=== PATIENT | male | born 1955 | race Caucasian/White ===

== ENCOUNTER → 2018-07-18 09:51 | Outpatient (CLI) | payer OTHER, SELFPAY ==
[2018-07-18 11:26] LABS: Prostate Specific Ag, Diagnost 9.15 ng/mL (0.0-4.0)
== END ==
PROVIDERS: PCP Family Medicine; Visit Provider Urology
DX: R97.20 Elevated prostate specific antigen [PSA] (principal)
CPT/HCPCS: 36415; 84153

== ENCOUNTER → 2018-08-15 10:33 | Outpatient (CLI) | payer OTHER, SELFPAY ==
[2018-08-15 12:28] LABS: Prostate Specific Ag, Diagnost 3.38 ng/mL (0.0-4.0)
== END ==
PROVIDERS: Visit Provider Urology
DX: R97.20 Elevated prostate specific antigen [PSA] (principal)
CPT/HCPCS: 36415; 84153; 84154

== ENCOUNTER → 2018-08-15 10:38 | Outpatient (CLI) | payer OTHER, SELFPAY | PROVIDERS: Visit Provider Urology | DX: R97.20 Elevated prostate specific antigen [PSA] (principal) ==

== ENCOUNTER → 2022-03-08 14:49 | Outpatient (CLI) | payer MEDICARE, OTHER, SELFPAY ==
--- NOTE | 2022-03-08 14:54 | MR_ITS ---
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 There is no evidence of intracranial hemorrhage or mass. The ventricular size is normal. There is no evidence of shift of the midline structures. No area of restricted diffusion is identified. The posterior fossa and brainstem have an unremarkable appearance. Normal major vessel vascular flow voids are seen. There is mild mucosal thickening of the left maxillary sinus. IMPRESSION: No acute intracranial abnormality. Mild left maxillary sinusitis. Reviewed, Interpreted and Dictated by Alok Thornton III, MD Transcribed by Judy Armando Authenticated and [facility]
== END ==
PROVIDERS: PCP Nurse Practitioner Family; Visit Provider Nurse Practitioner Family
DX: R51.9 Headache, unspecified (principal)
CPT/HCPCS: 70551

== ENCOUNTER → 2023-06-14 10:34 | Outpatient (CLI) | payer MEDICARE, OTHER, SELFPAY ==
--- NOTE | 2023-06-14 11:13 | MR_ITS ---
FINAL REPORT CLINICAL HISTORY: RIGHT ANKLE PAIN stiffness up back of leg FINDINGS: Multiplanar MR imaging of the right ankle was performed without contrast.There is motion artifact which limits exam sensitivity. There are mild degenerative changes. The bony structures are intact without evidence of fracture, bone bruise or marrow edema. No osteochondral lesion is identified. There is irregularity of the ATFL consistent with partial tear. There is distal Achilles tendinitis with a complete tear 2.5 cm from its insertion with 1 cm retraction. There is surrounding soft tissue edema or hemorrhage. There is posterior plantar fasciitis. The posterior plantar aponeurosis is intact. There is a tibiotalar joint effusion. Calcaneal spurs are noted. The musculature is intact. There is no evidence of soft tissue mass or cyst. IMPRESSION: Partial tear of the ATFL. Complete tear of the Achilles tendon with 1 cm retraction and surrounding soft tissue edema or hemorrhage. Posterior plantar fasciitis. Reviewed, Interpreted and Dictated by Alok Thornton III, MD Transcribed by Yesenia De Anda Authenticated and . [facility]
== END ==
PROVIDERS: PCP Nurse Practitioner Family; Visit Provider Nurse Practitioner Family
DX: M25.571 Pain in right ankle and joints of right foot (principal)
CPT/HCPCS: 73721

== ENCOUNTER 2024-01-21 08:09 | Day surgery (SDC) | payer MEDICARE, OTHER, SELFPAY ==
[2024-01-21] VITALS (8 sets, daily range): BP systolic 117–149; BP diastolic 69–81; PULSE 73–87; RESP 16–24; TEMP 36.3–36.6; O2SAT 95–96
--- OUTSIDE RECORDS SUMMARY | 2024-01-21 08:12 | XMS_ITS | Clinical Summary ---
Author Name Unknown Address [address] [address] Phone Organization [facility] , [facility] Address [address] [place] [address] Phone Care Team Providers Care Cell Tender Helper Name Role Phone Roshni GUZMAN, Candelario Hodgson Unavailable [phone] DIONISIO TURNER, GUCCI Horton Unavailable [phone] Reason for Visit and Chief Complaint The Chief Complaint is: Right Archilles Rupture Problems Includes: Problems addressed during this encounter and other active Problems All Visits Onset Date Resolved Date Provider Condition S tatus Right Ankle Joint Pain 06/24/2023 Candelario webster DPM Active Last Documented On 3 9:34AM ; [facility] Plan of Treatment Fall Risk Assessment: This patient has been identified as a fall risk. Balance/gait along with postural blood pressure, vision and home fall hazards have been assessed. Medications have been reviewed, and recommendations made with regard to contributing factors for future falls. Plan of care: Consideration of vitamin D supplementation along with balance and strength training with consideration for formal physical therapy has been discussed with the patient. - Last Documented On 09/04/2023 2:42PM ; [facility] I did review the history. I did examine this patient. He seems to be doing quite well. He has responded positively to boot immobilization and to physical therapy. He feels as though that has been tremendously beneficial. We did write a clarification order to increase his activities and start to transition him away from the boot. We discussed a very specific strategy to transition him away from the boot around his home for the next 2 weeks and then onto a good supportive tennis shoe and other activities without the boot outside of his home thereafter. I have reviewed that in detail with this patient. He is understanding of this. We will plan to see him back in 6 months for follow-up. I again reminded him this is going to be an extended period of time as he recovers from this particular injury. He is understanding and agreeable with that plan of care. - Last Documented On 09/04/2023 2:42PM ; [facility], [facility] Pending Tests Order Diagnosis Results Due Ordering P rovider Therapy - Physical Therapy Ankle Overweight 09/04/23 Candelario Barakat DPM Last Documented On 4 2:42PM ; [facility], [facility] Future Appointments Date Time Location Provi ramon Follow Up 03/04/2024 1:00PM [facility] PS C Candelario Barakat DPCorby Last Documented On 4 9:48AM ; [facility], [facility] Instructions to patient Lose weight Last Documented On 4 2:26PM ; [facility], [facility] Assessments Includes: Assessments from this encounter Findings Candelario Barakat DPM made the following assessments - Last Documented On 09/04/2023 2:42PM ; [facility], [facility] - Overweight - Last Documented On 09/04/2023 2:42PM ; [facility], [facility] Nonoperative management Achilles rupture right, doing well. - Last Documented On 09/04/2023 2:42PM ; [facility], [facility] Instructions Includes: Instructions from this encounter Instructions to patient Lose weight Last Documented On 4 2:26PM ; [facility], [facility] Medical Equipment - Implanted Devices Includes: Current Devices No Medical Equipment Recorded Medications Includes: Medications discussed during this encounter and other current Medications Current Medications (continue as prescribed) Fluconazole 100 MG Oral Tablet 06/13/2023 Provider: Angie Jaramillo NP Diagnosis: Last Documented On 3 9:36AM By Yuki Cast ; [facility], [facility] Tamsulosin HCl 0.4 MG Oral Capsule 06/08/2023 Provid er: DEEPTI JEREZ MD Diagnosis: Last Documented On 3 9:36AM By Yuki Cast ; [facility] oxyBUTYnin Chloride ER 15 MG Oral Tablet Extended Release 24 Hour 05/24/2023 Provider: DEEPTI JEREZ MD Diagnosis: Last Documented On 3 9:36AM By Yuki Cast ; [facility] Simvastatin 40 MG Oral Tablet 05/10/2023 Provider: GUCCI NICHOLE MD Diagnosis: Last Documented On 3 9:36AM By Yuki Cast ; [facility] Omeprazole 40 MG Oral Capsule Delayed Release 05/01/20 Provider: MIAN SOLORZANO Diagnosis: Last Documented On 3 9:36AM By Yuki Cast ; [facility] Past Medications on file dexAMETHasone Sodium Phospha te 4 MG/ML Injection Solution 07/29/2023 - 08/28/2023 Provider: Candelario bruce DPM Diagnosis: use as directed 1-2 mL per v isit; for topical use with iontophoresis in physical therapy Last Documented On 3 5:32PM By Yuki Cast ; [facility] Medications Administered Includes: Administered Medications from this encounter No Administered Medications Recorded Vital Signs Includes: Vital Signs from this encounter Vital Name 09/04/2023 02:26P Height (in) 72 Weight (lb) 275 Body Mass Index 37.3 Body Surface Area 2.4 Note: ck Last Documented: On 09/04/2023 2:26PM ; [facility] Results Includes: Results discussed during this encounter No Results Recorded For Specified Dates History of Present Illness Includes: History of Present Illness from this encounter MASHA Richmond is a 67 year old male. - Allergy list reviewed - Problem list reviewed - Medication list reviewed This is a 67-year-old male who is seen for evaluation of the foot ankle and lower leg on the right side. We had bandage this nonoperatively. He has been in physical therapy he has been doing very well. He tells me he has been in therapy for about 3 weeks. He has been fully ambulatory in the boot for the past several weeks and seems to be functioning quite well. He does not complain of any pain or discomfort at this time. He denies nausea vomiting fever chills. He denies calf pain, chest pain, shortness of breath. Social History Description Last Updated Tobacco non-user 06/24/2023 Last Documented On 4 2:00PM ; [facility] Alcohol use 06/24/2023 Last Documented On 4 2:00PM ; [facility] No caffeine use 06/24/2023 Last Documented On 4 2:00PM ; [facility] No recent change in diet 06/24/2023 Last Documented On 4 2:00PM ; [facility], [facility] Not a current smoker. 06/24/2023 Last Documented On 4 2:00PM ; [facility], [facility] Not exercising regularly 06/24/2023 Last Documented On 4 2:00PM ; [facility], [facility] Not using drugs 06/24/2023 Last Documented On 4 2:00PM ; [facility] Smoking Status Unknown Procedures and Surgical History Includes: Procedures from this encounter Procedures Code Diagnosis Performing Provider Service L ocation Service Date use of tobacco assessment performed 1000F Last Documented On 4 2:00PM ; [facility], [facility] patient screened for future fall risk: documentation of any fall with injury in past year 1100F Last Documented On 4 2:00PM ; [facility] review of medications documented 1160F Last Documented On 4 2:00PM ; [facility] an X-ray was performed [facility] 06/24/23 [id number] Last Documented On 4 2:00PM ; [facility] an MRI was performed [facility] 06/14/23 [id number] Last Documented On 4 2:00PM ; [facility], [facility] Surgical History Last Updated History of History of Gallbladder 2022 Last Documented On 4 2:00PM ; [facility] Past Surgical History: tonsillectomy Last Documented On 4 2:00PM ; [facility] Medical History Includes: Medical History addressed during this encounter Description Last Updated History of Heartburn / Acid Reflux 06/24 Last Documented On 4 2:00PM ; [facility], [facility] History of Sleep Apnea 06/24/2023 Last Documented On 4 2:00PM ; [facility], [facility] Use of CPAP 06/24/2023 Last Documented On 4 2:00PM ; [facility] Family History Includes: Family History addressed during this encounter Description Last Updated No significant family history 06/24/2023 Last Documented On 4 2:00PM ; [facility] Review of Systems Includes: Review of Systems from this encounter Systemic: Not feeling tired, no recent weight loss, and no recent weight gain. Head: No headache and no sinus pain. Eyes: No vision problems and no Cataracts. Glasses/Contacts strokes in both eyes. No Glaucoma. Otolaryngeal: No hearing loss and no tinnitus. Cardiovascular: No chest pain or discomfort, no palpitations, no Hypertension, and no High Cholesterol. Pulmonary: No daytime asthma symptoms and no chronic cough. No wheezing. Gastrointestinal: No heartburn and no abdominal pain. No Indigestion. Acid Reflux. No Peptic Ulcer, no GI Stomach Bleed, and no Ulcers. Endocrine: No hot flashes, no muscle weakness, no Diabetes, no Hypothyroid, and no Hyperthyroid. Hematologic: No easy bleeding, no tendency for easy bruising, and no Anemia. Musculoskeletal: No Arthritis. Lower back pain. No soft tissue swelling and no localized joint pain. Neurological: No dizziness, no convulsions, and no numbness. Psychological: No anxiety, no emotional lability, no depression, and no insomnia. Not crying for no reason. Skin: No dry skin. No Ulcers, no Scars, and no rash. Allergic and Immunologic: Complaint of seasonal allergic reaction. Mental Status Includes: Mental Status from this encounter Description No anxiety Functional Status Includes: Functional Status from this encounter No Functional Status Recorded Physical Exam Includes: Physical Exam from this encounter Allergies Includes: Active Allergies No Known Allergies Encounters Encounter Provider Location Date Check-In Time Check-Out Time Diagnosis Follow Up Candelario Barakat D[facility]by [facility] 4 1:49PM 2:40PM Overweight Insurance Includes: Active Insurance Policies Plan Name Member ID Group # Subscriber Relationship Effect hubert Dates 1 - Medicare Part B [facility] [id number] Eric Richmond Self 2 - [employer] [id number] Eric Richmond Niya f Clinical Notes Includes: Clinical Notes from this encounter * Progress note Date Encounter Last Documented by 09/04/2023 Follow Up Last documented on 09/04/2023; 2:42 PM, Candelario Barakat DPM; [facility], [facility] Active Problems & Conditions - Right Ankle Joint Pain Chief Complaint The Chief Complaint is: Right Archilles Rupture. Referred Here Referred by Angie Rock. last appt w/PCP 06/14/23 History of Present Illness Eric Richmond is a 67 year old male. - Allergy list reviewed - Problem list reviewed - Medication list reviewed This is a 67-year-old male who is seen for evaluation of the foot ankle and lower leg on the right side. We had bandage this nonoperatively. He has been in physical therapy he has been doing very well. He tells me he has been in therapy for about 3 weeks. He has been fully ambulatory in the boot for the past several weeks and seems to be functioning quite well. He does not complain of any pain or discomfort at this time. He denies nausea vomiting fever chills. He denies calf pain, chest pain, shortness of breath. Current Medication - Fluconazole 100 MG Oral Tablet 14 days, 0 refills - Omeprazole 40 MG Oral Capsule Delayed Release 90 days, 0 refills - oxyBUTYnin Chloride ER 15 MG Oral Tablet Extended Release 24 Hour 90 days, 0 refills - Simvastatin 40 MG Oral Tablet 90 days, 0 refills - Tamsulosin HCl 0.4 MG Oral Capsule 90 days, 0 refills Past Medical/Surgical History Reported: Use of CPAP. Diagnoses: Sleep Apnea Heartburn / Acid Reflux Surgical: - Past Surgical History: tonsillectomy - History of Gallbladder Social History Not a current smoker. Current diet: No recent change in diet. Caffeine use: No caffeine use. Tobacco use: Tobacco non-user. Alcohol: Alcohol use. Drug Use: Not using drugs. Habits: Not exercising regularly. Allergies - No Known Allergies Family History No significant family history Review Of Systems Systemic: Not feeling tired, no recent weight loss, and no recent weight gain. Head: No headache and no sinus pain. Eyes: No vision problems and no Cataracts. Glasses/Contacts strokes in both eyes. No Glaucoma. Otolaryngeal: No hearing loss and no tinnitus. Cardiovascular: No chest pain or discomfort, no palpitations, no Hypertension, and no High Cholesterol. Pulmonary: No daytime asthma symptoms and no chronic cough. No wheezing. Gastrointestinal: No heartburn and no abdominal pain. No Indigestion. Acid Reflux. No Peptic Ulcer, no GI Stomach Bleed, and no Ulcers. Endocrine: No hot flashes, no muscle weakness, no Diabetes, no Hypothyroid, and no Hyperthyroid. Hematologic: No easy bleeding, no tendency for easy bruising, and no Anemia. Musculoskeletal: No Arthritis. Lower back pain. No soft tissue swelling and no localized joint pain. Neurological: No dizziness, no convulsions, and no numbness. Psychological: No anxiety, no emotional lability, no depression, and no insomnia. Not crying for no reason. Skin: No dry skin. No Ulcers, no Scars, and no rash. Allergic and Immunologic: Complaint of seasonal allergic reaction. Physical Findings - Vitals taken 09/04/2023 02:26 pm ck Height 72 in 60 - 80 Weight 275 lbs 123 - 215 Body Mass Index 37.3 kg/m2 Body Surface Area 2.4 m2 This is a 67-year-old male who is seen for evaluation of the foot ankle and lower leg on the right side. He is in no acute distress. He is alert and oriented x3. He has integrity of the Achilles to palpation. He has good plantar flexion strength against resistance. He has no neurologic or vascular deficiency. There is no calf edema or palpable cord in the calf. No other acutely abnormal finding is noted. Tests Nothing new Assessment Candelario Barakat DPM made the following assessments - Overweight Nonoperative management Achilles rupture right, doing well. Previous Tests Imaging: X-Ray: An X-ray was performed [facility] 06/24/23. MRI Scan: An MRI was performed [facility] 06/14/23. Counseling/Education Candelario Barakat DPM performed the following counseling: - Lose weight Plan StartCited - Overweight Therapy/Physical Therapy: Ankle Instructions: See PT order attached EndCited Fall Risk Assessment: This patient has been identified as a fall risk. Balance/gait along with postural blood pressure, vision and home fall hazards have been assessed. Medications have been reviewed, and recommendations made with regard to contributing factors for future falls. Plan of care: Consideration of vitamin D supplementation along with balance and strength training with consideration for formal physical therapy has been discussed with the patient. I did review the history. I did examine this patient. He seems to be doing quite well. He has responded positively to boot immobilization and to physical therapy. He feels as though that has been tremendously beneficial. We did write a clarification order to increase his activities and start to transition him away from the boot. We discussed a very specific strategy to transition him away from the boot around his home for the next 2 weeks and then onto a good supportive tennis shoe and other activities without the boot outside of his home thereafter. I have reviewed that in detail with this patient. He is understanding of this. We will plan to see him back in 6 months for follow-up. I again reminded him this is going to be an extended period of time as he recovers from this particular injury. He is understanding and agreeable with that plan of care. Practice Management Use of tobacco assessment performed and patient screened for future fall risk documentation of any fall with injury in past year Review of medications documented. Care Team - GUCCI NICHOLE MD - PIGGYBACK CLERK Notes This dictation was done with voice recognition software and may contain errors and omissions.
--- OUTSIDE RECORDS SUMMARY | 2024-01-21 08:12 | XMS_ITS ---
Care Plan - [facility], [facility] Created on: January 21, 2024 RichmondEric burgess Buffy : 1955 Sex: Male Author Name Unknown Address [address] [address] Phone Organization [facility] Address [address] [place] [place] [address] Phone Care Team Providers Care Mill Platform Supervisor Name Role Phone Candelario Barakat DPM Unavailable [phone] DIONISIO TURNER, GUCCI Horton Unavailable [phone]
--- OUTSIDE RECORDS SUMMARY | 2024-01-21 08:12 | XMS_ITS ---
Author Name Unknown Address [address] [address] Phone Organization [facility] Address [address] [place] [address] Phone Care Team Providers Care Tomographic Tech Name Role Phone Roshni GUZMAN, Candelario Hodgson Unavailable [phone] DIONISIO TURNER, GUCCI Horton Unavailable [phone] Problems Includes: Active, inactive, and resolved Problems All Visits Onset Date Resolved Date Provider Condition S tatus Right Ankle Joint Pain 06/24/2023 Candelario webster DPM Active Last Documented On 3 9:34AM ; [facility], [facility] Plan of Treatment Future Appointments Date Time Location Provi ramon Follow Up 03/04/2024 1:00PM [facility] Candelario Barakat DPM Last Documented On 4 9:48AM ; [facility] Instructions to patient Lose weight Last Documented On 4 2:26PM ; [facility] Lose weight Last Documented On 3 10:50AM ; [facility] Lose weight Last Documented On 3 10:29AM ; [facility] Assessments Includes: Assessments for all patient encounters Findings Encounter Date Overweight Follow Up with Candelario MARION M 09/04/2023 Last Documented On 4 2:42PM ; [facility] Overweight Follow Up with Candelario MARION M 07/24/2023 Last Documented On 3 11:11AM ; [facility] Overweight Next Available Non-Specified Phy sician with Candelario Barakat DPM 06/24/2023 Last Documented On 3 11:02AM ; [facility] Instructions Includes: Instructions for all patient encounters Instructions to patient Lose weight Last Documented On 4 2:26PM ; [facility] Lose weight Last Documented On 3 10:50AM ; [facility] Lose weight Last Documented On 3 10:29AM ; [facility] Medical Equipment - Implanted Devices Includes: Current and historical Devices No Medical Equipment Recorded Medications Includes: Current and historical Medications Current Medications (continue as prescribed) Fluconazole 100 MG Oral Tablet 06/13/2023 Provider: Angie Jaramillo NP Diagnosis: Last Documented On 3 9:36AM By Yuki Cast ; [facility] Tamsulosin HCl 0.4 MG Oral Capsule 06/08/2023 Provid er: DEEPTI JEREZ MD Diagnosis: Last Documented On 3 9:36AM By Yuki Cast ; [facility] oxyBUTYnin Chloride ER 15 MG Oral Tablet Extended Release 24 Hour 05/24/2023 Provider: DEEPTI JEREZ MD Diagnosis: Last Documented On 3 9:36AM By Yuki Cast ; [facility] Simvastatin 40 MG Oral Tablet 05/10/2023 Provider: GUCCI NICHOLE MD Diagnosis: Last Documented On 3 9:36AM By Yuki Cast ; [facility] Omeprazole 40 MG Oral Capsule Delayed Release 05/01/20 Provider: MIAN SOLORZANO Diagnosis: Last Documented On 3 9:36AM By Yuki Cast ; [facility] Past Medications on file dexAMETHasone Sodium Phospha te 4 MG/ML Injection Solution 07/29/2023 - 08/28/2023 Provider: Candelario bruce DPM Diagnosis: use as directed 1-2 mL per v isit; for topical use with iontophoresis in physical therapy Last Documented On 3 5:32PM By Yuki Cast ; [facility] Medications Administered Includes: Administered Medications in patient's chart No Administered Medications Recorded Vital Signs Includes: Vital Signs from 01/20/2023 through 01/21/2024 Vital Name 09/04/2023 02:26P 07/24/2023 10:55A 06/24 10:29A Height (in) 72 72 72 Weight (lb) 275 270 270 Body Mass Index 37.3 36.6 36.6 Body Surface Area 2.4 2.4 2.4 Note: ck ck mdv Last Documented: On 09/04/2023 2:26PM ; [facility] On 07/24/2023 10:55AM ; [facility] On 06/24/2023 10:29AM ; [facility], [facility] Results Includes: Results from 01/20/2023 through 01/21/2024 No Results Recorded For Specified Dates History of Present Illness History of Present Illness not supported for this document type No History of Present Illness Recorded Social History Description Last Updated Tobacco non-user 06/24/2023 Last Documented On 3 11:02AM ; [facility] Alcohol use 06/24/2023 Last Documented On 3 11:02AM ; [facility] No caffeine use 06/24/2023 Last Documented On 3 11:02AM ; [facility] No recent change in diet 06/24/2023 Last Documented On 3 11:02AM ; [facility] Not a current smoker. 06/24/2023 Last Documented On 3 11:02AM ; [facility] Not exercising regularly 06/24/2023 Last Documented On 3 11:02AM ; [facility] Not using drugs 06/24/2023 Last Documented On 3 11:02AM ; [facility] Smoking Status Unknown Procedures and Surgical History Includes: Procedures from 01/20/2023 through 01/21/2024 Procedures Code Diagnosis Performing Provider Service Location Service Date X-RAY EXAM OF ANKLE 3 VIEWS (RIGHT) 53395 Strain of right Achilles tendon, initial encounter Candelario Barakat DPM [facility] 06/24/2023 Last Documented On 3 11:26AM ; [facility], [facility] CRUTCHES (Purchase of New Equipment, KX) E0114 Strain of right Achilles tendon, initial encounter Candelario Barakat DPM [facility] 06/24/2023 Last Documented On 3 4:09PM ; [facility] High tide Walker- Pneumatic (RIGHT, KX, ABN signed) [id number] Strain of right Achilles tendon, initial encounter Candelario Barakat DPM [facility] 06/24/2023 Last Documented On 3 4:09PM ; [facility] Surgical History Last Updated History of History of Gallbladder 2022 Last Documented On 3 11:02AM ; [facility] Past Surgical History: tonsillectomy Last Documented On 3 11:02AM ; [facility] Medical History Includes: Medical History in patient's chart Description Last Updated History of Heartburn / Acid Reflux 06/24 Last Documented On 3 11:02AM ; [facility] History of Sleep Apnea 06/24/2023 Last Documented On 3 11:02AM ; [facility] Use of CPAP 06/24/2023 Last Documented On 3 11:02AM ; [facility] Family History Includes: Family History in patient's chart Description Last Updated No significant family history 06/24/2023 Last Documented On 3 11:02AM ; [facility] Review of Systems Review of Systems not supported for this document type No Review of Systems Recorded Mental Status Description No anxiety Functional Status No Functional Status Recorded Physical Exam Physical Exam not supported for this document type No Physical Exam Recorded Allergies Includes: Active, inactive, and resolved Allergies No Known Allergies Encounters Includes: Encounters from 01/20/2023 through 01/21/2024 Encounter Provider Location Date Check-In Time Check-Out Time Diagnosis Follow Up Candelario Barakat DPM [facility] 09/04/19 1:49PM 2:40PM Overweight Follow Up Candelario Barakat DPM [facility] 07/24/20 10:50AM 11:12AM Overweight [employer] Candelario MARIONM [facility] 06/24/20 11:10AM 11:59PM Next Available Non-Specified Physician Candelario Barakat DPM [facility] 06/24/20 9:45AM 10:57AM Overweight Insurance Includes: Active Insurance Policies Plan Name Member ID Group # Subscriber Relationship Effect hubert Dates 1 - Medicare Part B [facility] [id number] Eric Richmond Self 2 - [employer] [id number] Eric Richmond Niya f Clinical Notes Includes: Signed Clinical Notes starting from 08/16/2022 * Progress note Date Encounter Last Documented by 09/04/2023 Follow Up Last documented on 09/04/2023; 2:42 PM, Candelario MARIONM; [facility] Active Problems & Conditions - [...] Tests Imaging: X-Ray: An X-ray was performed [facility] 06/24/23. MRI Scan: An MRI was performed [facility] 06/14/23. Counseling/Education Candelario Barakat DPM performed the [...] Care Team - GUCCI NICHOLE MD - RESEARCH TECHNICIAN Notes This dictation was done with voice recognition software and may contain errors and omissions. * Progress note Date Encounter Last Documented by 07/24/2023 Follow Up Last documented on 07/24/2023; 11:11 AM, Candelario Barakat DPM; [facility] Active Problems & Conditions - Right Ankle Joint Pain Chief Complaint The Chief Complaint is: Right Archilles Rupture. Referred Here Referred by Angie Rock. last appt w/PCP 06/14/23 History of Present Illness Eric Richmond is a 67 year old male. - Allergy list reviewed - Problem list reviewed - Medication list reviewed This is a 67-year-old male who is here for evaluation of the foot ankle lower leg on the right side. He has been managed nonoperatively for an Achilles rupture. He is about 6 weeks post injury. He is wearing the immobilizing boot and utilizing the knee scooter primarily. He is here with his . He denies nausea vomiting fever chills. He denies calf pain, chest pain, shortness of breath. We did send him for a venous duplex Doppler at the original visit which was negative for DVT. He does not complain of any pain in the Achilles. Current Medication - Fluconazole 100 MG Oral [...] allergic reaction. Physical Findings - Vitals taken 07/24/2023 10:55 am ck Height 72 in 60 - 80 Weight 270 lbs 123 - 215 Body Mass Index 36.6 kg/m2 Body Surface Area 2.4 m2 This is a 67-year-old male who is here for evaluation of the foot ankle and lower leg on the right side. He is in no acute distress. He is alert and oriented x3. Examination of the foot ankle and lower leg on the right side reveals integrity of the Achilles particularly in the watershed area. There is no calf edema or palpable cord in the calf. There is no open skin lesion or abrasion. There is no gross neurologic or vascular deficiency. He has good early strength with plantar flexion against my resistance. He has no other acutely abnormal finding. He does have some chronic varicosities indicative of venous insufficiency. 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 Negative venous duplex Doppler for DVT at previous visit. Previous Tests Imaging: X-Ray: An X-ray was performed [facility] 06/24/23. MRI Scan: An MRI was performed [facility] 06/14/23. Counseling/Education Candelario Barakat DPM performed the [...] history. I did examine this patient. He has done well with the early phase of nonoperative management of an Achilles rupture. He seems to be functioning quite well at this point he is tolerant of the situation. We will now have him transition to weight-bearing in the boot. I do not want him bearing weight without the boot. He may remove it at night to sleep. We will have him simultaneously begin physical therapy for functional rehabilitation and strengthening. I plan to see him back in 6 weeks for follow-up. All questions have been answered for him. He was instructed to call me with any developing questions or concerns. Practice Management Use of tobacco assessment performed and patient screened for future fall risk documentation of any fall with injury in past year Review of medications documented. Care Team - GUCCI NICHOLE MD - RESEARCH TECHNICIAN Notes This dictation was done with voice recognition software and may contain errors and omissions. * Progress note Date Encounter Last Documented by 06/24/2023 Next Available Non-S pecified Physician Last documented on 06/24/2023; 11:02 AM, Candelario Barakat DPCorby; [facility] Active Problems & Conditions - Right Ankle Joint Pain Chief Complaint The Chief Complaint is: Right Ankle Pain. Referred Here Referred by Angie Rock. last appt w/PCP 06/14/23 History of Present Illness Eric Richmond is a 67 year old male. - Allergy list reviewed - Problem list reviewed - Medication list reviewed - Previous history of new onset pain 06/12/2023 Injury is not work related or an automotive accident. Moving furniture - Stabbing pain - Pain is constant (100% of the time) - Pain is occasional (25% of the time) - Pain is dull, aching - Patient pain level from 1-10: 4 - No previous treatment. This is a well-developed well-nourished 67-year-old male who is seen for evaluation of the foot ankle and lower leg on the right side. He tells me he was helping his son move a large piece of furniture and stepped awkwardly off of a step causing a forced dorsiflexion injury to the right foot and ankle with an immediate pop sensation in the Achilles. He had an evaluation with ultimately an MRI 2 days later on 06/14/2023 which indicated an Achilles tendon rupture. He was asked to limit his weightbearing activities but was not immobilized in any way. He has a walking cane he is here with his today. He points to the distal Achilles in the area of the known rupture on MRI as the source and location of his pain. He does tell me he had chronic retrocalcaneal pain that bothered him when he was working. He is now retired. Current Medication - Fluconazole 100 MG Oral [...] allergic reaction. Physical Findings - Vitals taken 06/24/2023 10:29 am mdv Height 72 in 60 - 80 Weight 270 lbs 123 - 215 Body Mass Index 36.6 kg/m2 Body Surface Area 2.4 m2 This is a 67-year-old male who is seen for evaluation of the foot ankle and lower leg on the right side. He has prominent retrocalcaneal spurring with tenderness at the distal Achilles at the insertion point. He has tenderness of the watershed area of the Achilles in the area of the known rupture. He does have some ability to plantarflex against my resistance but is certainly weak as 1 would expect. He has some thickening of the Achilles which appears to be a bit of an acute on chronic situation. There is some edema to this localized injury area of the distal Achilles. He does tell me subjectively he has some deep aching pain in the calf and along the medial thigh region raising suspicion for DVT. There is no gross neurologic or vascular deficiency otherwise in the foot or ankle. He has the ability to flex and extend the toes. There is no calcaneal pain. There is no medial or lateral malleolar pain. Pulses are palpable and sensation is intact. Tests MRI from 06/14/2023 indicates a partial tear of the ATFL with complete tear of the Achilles tendon with 1 cm of retraction and surrounding soft tissue edema and/or hemorrhage with posterior plantar fasciitis, see report. 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 Differential diagnosis of DVT with pain right calf and medial right thigh. Previous Tests Imaging: X-Ray: An X-ray was performed [facility] 06/24/23. MRI Scan: An MRI was performed [facility] 06/14/23. Counseling/Education Candelario Barakat DPM performed the following counseling: - Lose weight Plan Fall Risk Assessment: This patient has been [...] history. I did examine this patient. He has chronic retrocalcaneal/Achilles insertional pathology. This did bother him for many years when he was working. He has more recently suffered a forced dorsiflexion injury to the right foot and ankle with an audible and physical pop of the Achilles confirmed rupture on MRI dated 06/14/2023. Date of injury was 06/12/2023. We did discuss operative and nonoperative treatment options. He would likely do well with nonoperative management based on what I see from the MRI and the clinical exam. I do think the alignment of the ends of the ruptured tendon are acceptable. There appears to be some acute on chronic situation with likely pre-existing underlying disease process. We did discuss the timeline associated with healing. We will place him in an immobilizing boot with an Dandre bandage. He will remove the Dandre bandage at night to sleep but yet keep the boot on for positional purposes. We will add a heel lift to the boot to take the tension off of the Achilles. We did discuss nonweightbearing with a knee scooter. He tells me he has a friend with 1 and he will obtain that. He will call me with any developing questions or concerns. We will plan to see him back in 1 month for follow-up. We did discuss the timeline associated with healing including extensive physical therapy. [id number] This patient was prescribed a pneumatic walking boot for the diagnosis specified in my notes. The patient is ambulatory but has weakness and / or instability of their affected body part which requires stabilization from this semi-rigid / rigid orthosis to improve their function. Verbal and written instructions for the use and application of this item were given. Patient was instructed that should the brace result in increased pain, decreased sensation, increased swelling, or an overall worsening of their medical condition, to please contact our office immediately. Orthotic management and training was provided for skin care, modifications due to healing tissues, edema changes, interruption in skin integrity, and safety precautions with the orthosis. Practice Management Patient screened for future fall risk: documentation of any fall with injury in past year Review of medications documented. Care Team - GUCCI NICHOLE MD - RESEARCH TECHNICIAN Notes This dictation was done with voice recognition software and may contain errors and omissions.
--- OUTSIDE RECORDS SUMMARY | 2024-01-21 08:13 | XMS_ITS | Clinical Summary ---
Author Name Unknown Address [address] [place] [address] Phone Organization [facility] , [facility] Address [address] [place] [address] Phone Care Team Providers Care Air Gun Operator Name Role Phone Roshni GUZMAN, Candelario Hodgson Unavailable [phone] DIONISIO TURNER, GUCCI Horton Unavailable [phone] Reason for Visit and Chief Complaint The Chief Complaint is: Right Archilles Rupture Problems Includes: Problems addressed during this encounter and other active Problems All Visits Onset Date Resolved Date Provider Condition S tatus Right Ankle Joint Pain 06/24/2023 Candelario webster DPM Active Last Documented On 3 9:34AM ; [facility] Plan of Treatment Fall Risk Assessment: This [...] with the patient. - Last Documented On 07/24/2023 11:11AM ; [facility] I did review the history. I did [...] me with any developing questions or concerns. - Last Documented On 07/24/2023 11:11AM ; [facility], [facility] Pending Tests Order Diagnosis Results Due Ordering P ronatalia Therapy - Physical Therapy Ankle Overweight 07/24/23 Candelario Barakat DPM Last Documented On 3 11:11AM ; [facility], [facility] Future Appointments Date Time Location Provi ramon Follow Up 03/04/2024 1:00PM [facility] Candelario Barakat DPCorby Last Documented On 4 9:48AM ; [facility], [facility] Instructions to patient Lose weight Last Documented On 3 10:50AM ; [facility], [facility] Assessments Includes: Assessments from this encounter Findings Candelario Barakat DPM made the following assessments - Last Documented On 07/24/2023 11:11AM ; [facility], [facility] - Overweight - Last Documented On 07/24/2023 11:11AM ; [facility] Acute on chronic Achilles pathology with Achilles tendon rupture per MRI dated 06/14/2023 with 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 - Last Documented On 07/24/2023 11:11AM ; [facility], [facility] Negative venous duplex Doppler for DVT at previous visit. - Last Documented On 07/24/2023 11:11AM ; [facility], [facility] Instructions Includes: Instructions from this encounter Instructions to patient Lose weight Last Documented On 3 10:50AM ; [facility], [facility] Medical Equipment - Implanted Devices Includes: Current Devices No Medical Equipment Recorded Medications Includes: Medications discussed during this encounter and other current Medications Current Medications (continue as prescribed) Fluconazole 100 MG Oral Tablet 06/13/2023 Provider: Angie Jaramillo NP Diagnosis: Last Documented On 3 9:36AM By Yuki Cast ; [facility], [facility] Tamsulosin HCl 0.4 MG Oral Capsule 06/08/2023 Provid er: DEEPTI JEREZ MD Diagnosis: Last Documented On 3 9:36AM By Yuki Cast ; [facility] oxyBUTYnin Chloride ER 15 MG Oral Tablet Extended Release 24 Hour 05/24/2023 Provider: DEEPTI JEREZ MD Diagnosis: Last Documented On 3 9:36AM By Yuki Cast ; [facility] Simvastatin 40 MG Oral Tablet 05/10/2023 Provider: GUCCI NICHOLE MD Diagnosis: Last Documented On 3 9:36AM By Yuki Cast ; [facility] Omeprazole 40 MG Oral Capsule Delayed Release 05/01/20 Provider: MIAN SOLORZANO Diagnosis: Last Documented On 3 9:36AM By Yuki Cast ; [facility] Past Medications on file dexAMETHasone Sodium Phospha te 4 MG/ML Injection Solution 07/29/2023 - 08/28/2023 Provider: Candelario bruce DPM Diagnosis: use as directed 1-2 mL per v isit; for topical use with iontophoresis in physical therapy Last Documented On 3 5:32PM By Yuki Cast ; [facility] Medications Administered Includes: Administered Medications from this encounter No Administered Medications Recorded Vital Signs Includes: Vital Signs from this encounter Vital Name 07/24/2023 10:55A Height (in) 72 Weight (lb) 270 Body Mass Index 36.6 Body Surface Area 2.4 Note: ck Last Documented: On 07/24/2023 10:55A M ; [facility] Results Includes: Results discussed during this [...] complain of any pain in the Achilles. Social History Description Last Updated Tobacco non-user 06/24/2023 Last Documented On 3 10:50AM ; [facility] Alcohol use 06/24/2023 Last Documented On 3 10:50AM ; [facility] No caffeine use 06/24/2023 Last Documented On 3 10:50AM ; [facility] No recent change in diet 06/24/2023 Last Documented On 3 10:50AM ; [facility], [facility] Not a current smoker. 06/24/2023 Last Documented On 3 10:50AM ; [facility] Not exercising regularly 06/24/2023 Last Documented On 3 10:50AM ; [facility] Not using drugs 06/24/2023 Last Documented On 3 10:50AM ; [facility] Smoking Status Unknown Procedures and Surgical History Includes: Procedures from this encounter Procedures Code Diagnosis Performing Provider Service L ocation Service Date use of tobacco assessment performed 1000F Last Documented On 3 10:55AM ; [facility], [facility] patient screened for future fall risk: documentation of any fall with injury in past year 1100F Last Documented On 3 10:50AM ; [facility] review of medications documented 1160F Last Documented On 3 10:50AM ; [facility] an X-ray was performed [facility] 06/24/23 09607 Last Documented On 3 10:50AM ; [facility], [facility] an MRI was performed [facility] 06/14/23 [id number] Last Documented On 3 10:50AM ; [facility], [facility] Surgical History Last Updated History of History of Gallbladder 2022 Last Documented On 3 10:50AM ; [facility], [facility] Past Surgical History: tonsillectomy Last Documented On 3 10:50AM ; [facility] Medical History Includes: Medical History addressed during this encounter Description Last Updated History of Heartburn / Acid Reflux 06/24 Last Documented On 3 10:50AM ; [facility], [facility] History of Sleep Apnea 06/24/2023 Last Documented On 3 10:50AM ; [facility] Use of CPAP 06/24/2023 Last Documented On 3 10:50AM ; [facility] Family History Includes: Family History addressed during this encounter Description Last Updated No significant family history 06/24/2023 Last Documented On 3 10:50AM ; [facility] Review of Systems Includes: Review of Systems [...] Time Diagnosis Follow Up Candelario Barakat DPM [facility] 3 10:50AM 11:12AM Overweight Insurance Includes: Active Insurance Policies Plan Name Member ID Group # Subscriber Relationship Effect hubert Dates 1 - Medicare Part [facility] [id number] Eric Richmond Self 2 - FOR LIFE [id number] Eric Richmond Niya f Clinical Notes Includes: Clinical Notes from this encounter * Progress note Date Encounter Last Documented by 07/24/2023 Follow Up Last documented on 07/24/2023; 11:11 AM, Candelario Barakat DPM; [facility], [facility] Active Problems & Conditions - Right [...] Tests Imaging: X-Ray: An X-ray was performed [facility] 06/24/23. MRI Scan: An MRI was performed [facility] 10/13/23. Counseling/Education Candelario Barakat DPM performed the following [...] Care Team - GUCCI NICHOLE MD - OCCUPATIONAL THERAPY AIDES TEACHER Notes This dictation was done with voice recognition software and may contain errors and omissions.
--- OUTSIDE RECORDS SUMMARY | 2024-01-21 08:13 | XMS_ITS | Clinical Summary ---
Author Name Unknown Address [address] [place] [address] Phone Organization [facility] , [facility] Address [address] [place] [address] Phone Care Team Providers Care Small Engine Mechanic Name Role Phone Roshni GUZMAN, Candelario Hodgson Unavailable [phone] DIONISIO TURNER, GUCCI Horton Unavailable [phone] Reason for Visit and Chief Complaint The Chief Complaint is: Right Ankle Pain Problems Includes: Problems addressed during this encounter and other active Problems Current Visit Onset Date Resolved Date Provider Samuel franco Status Right Ankle Joint Pain 06/24/2023 Candelario webster DPM Active Last Documented On 9:34AM ; [facility] Plan of Treatment Fall Risk [...] with the patient. - Last Documented On 06/24/2023 11:02AM ; [facility] I did review the history. [...] extensive physical therapy. L4361 This patient was prescribed??a??pneumatic walking boot??for??the diagnosis specified in my notes.?? The patient is ambulatory but has weakness and / or instability of their affected body part which requires stabilization from this semi-rigid / rigid orthosis to improve their function.? Verbal and written instructions for the use and application of this item were given.?? Patient was instructed that should the brace result in increased pain, decreased sensation, increased swelling, or an overall worsening of their medical condition, to please contact our office immediately.?? Orthotic management and training was provided for skin care, modifications due to healing tissues, edema changes, interruption in skin integrity, and safety precautions with the orthosis. - Last Documented On 06/24/2023 11:02AM ; [facility] Future Appointments Date Time Location Provi ramon Follow Up 03/04/2024 1:00PM [facility] Candelario Barakat DPM Last Documented On 4 9:48AM ; [facility] Instructions to patient Lose weight Last Documented On 3 10:29AM ; [facility] Assessments Includes: Assessments from this encounter Findings Candelario Barakat DPM made the following assessments - Last Documented On 06/24/2023 11:02AM ; [facility] - Overweight - Last Documented On 06/24/2023 11:02AM ; [facility] Acute on chronic Achilles pathology with Achilles tendon rupture per MRI dated 06/14/2023 with 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 - Last Documented On 06/24/2023 11:02AM ; [facility] Differential diagnosis of DVT with pain right calf and medial right thigh. - Last Documented On 06/24/2023 11:02AM ; [facility] Instructions Includes: Instructions from this encounter Instructions to patient Lose weight Last Documented On 3 10:29AM ; [facility] Medical Equipment - Implanted Devices Includes: Current Devices No Medical Equipment Recorded Medications Includes: Medications discussed during this encounter and other current Medications Current Medications (continue as prescribed) Fluconazole 100 MG Oral Tablet 06/13/2023 Provider: Angie Jaramillo NP Diagnosis: Last Documented On 3 9:36AM By Yuki Cast ; [facility] Tamsulosin HCl 0.4 MG Oral Capsule 06/08/2023 Provid er: DEEPTI JEREZ MD Diagnosis: Last Documented On 3 9:36AM By Yuki Cast ; [facility] oxyBUTYnin Chloride ER 15 MG Oral Tablet Extended Release 24 Hour 05/24/2023 Provider: DEEPTI JEREZ MD Diagnosis: Last Documented On 3 9:36AM By Yuki Cast ; [facility] Simvastatin 40 MG Oral Tablet 05/10/2023 Provider: GUCCI NICHOLE MD Diagnosis: Last Documented On 3 9:36AM By Yuki Cast ; [facility] Omeprazole 40 MG Oral Capsule Delayed Release 05/01/20 Provider: MIAN SOLORZANO Diagnosis: Last Documented On 3 9:36AM By Yuki Cast ; [facility] Past Medications on file dexAMETHasone Sodium Phospha te 4 MG/ML Injection Solution 07/29/2023 - 08/28/2023 Provider: Candelario bruce DPM Diagnosis: use as directed 1-2 mL per v isit; for topical use with iontophoresis in physical therapy Last Documented On 3 5:32PM By Yuki Cast ; [facility] Medications Administered Includes: Administered Medications from this encounter No Administered Medications Recorded Vital Signs Includes: Vital Signs from this encounter Vital Name 06/24/2023 10:29A Height (in) 72 Weight (lb) 270 Body Mass Index 36.6 Body Surface Area 2.4 Note: mdv Last Documented: On 06/24/2023 10:29A M ; [facility], [facility] Results Includes: Results discussed during this encounter [...] he was working. He is now retired. Social History Description Last Updated Tobacco non-user 06/24/2023 Last Documented On 3 11:02AM ; [facility] Alcohol use 06/24/2023 Last Documented On 3 11:02AM ; [facility] No caffeine use 06/24/2023 Last Documented On 3 11:02AM ; [facility], [facility] No recent change in diet 06/24/2023 Last Documented On 3 11:02AM ; [facility] Not a current smoker. 06/24/2023 Last Documented On 3 11:02AM ; [facility] Not exercising regularly 06/24/2023 Last Documented On 3 11:02AM ; [facility] Not using drugs 06/24/2023 Last Documented On 3 11:02AM ; [facility] Smoking Status Unknown Procedures and Surgical History Includes: Procedures from this encounter Procedures Code Diagnosis Performing Provider Service Location Service Date X-RAY EXAM OF ANKLE 3 VIEWS (RIGHT) 84350 Strain of right Achilles tendon, [facility] Last Documented On 3 11:26AM ; [facility] patient screened for future fall risk: documentation of any fall with injury in past year 1100F Last Documented On 3 9:37AM ; [facility] review of medications documented 1160F Last Documented On 3 9:37AM ; [facility] an X-ray was performed [facility] 06/24/23 75091 Last Documented On 3 10:27AM ; [facility] an MRI was performed [facility] 06/14/23 95796 Last Documented On 3 10:27AM ; [facility] Surgical History Last Updated History of History of Gallbladder 2022 Last Documented On 3 11:02AM ; [facility] Past Surgical History: tonsillectomy Last Documented On 3 11:02AM ; [facility] Medical History Includes: Medical History addressed during this encounter Description Last Updated History of Heartburn / Acid Reflux 06/24 Last Documented On 3 11:02AM ; [facility] History of Sleep Apnea 06/24/2023 Last Documented On 3 11:02AM ; [facility] Use of CPAP 06/24/2023 Last Documented On 3 11:02AM ; [facility] Family History Includes: Family History addressed during this encounter Description Last Updated No significant family history 06/24/2023 Last Documented On 11:02AM ; [facility] Review of Systems Includes: Review [...] Location Date Check-In Time Check-Out Time Diagnosis Next Available Non-Specified Physician Candelario Barakat DPM [facility] 06/24/20 9:45AM 10:57AM Overweight Insurance Includes: Active Insurance Policies Plan Name Member ID Group # Subscriber Relationship Effect hubert Dates 1 - Medicare Part B [facility] [id number] Eric Richmond Self 2 - FOR LIFE [id number] Eric Richmond Niya f Clinical Notes Includes: Clinical Notes from this encounter * Progress note Date Encounter Last Documented by 06/24/2023 Next Available Non-S pecified Physician Last documented on 06/24/2023; 11:02 AM, Candelario Barakat DPM; [facility] Active Problems & Conditions - Right Ankle [...] Tests Imaging: X-Ray: An X-ray was performed [facility] 06/24/23. MRI Scan: An MRI was performed [facility] 06/14/23. Counseling/Education Candelario Barakat DPM performed [...] Care Team - GUCCI NICHOLE MD - LICENSING MANAGER Notes This dictation was done with voice recognition software and may contain errors and omissions.
--- OUTSIDE RECORDS SUMMARY | 2024-01-21 08:13 | XMS_ITS | Clinical Summary ---
Author Name Unknown Address [address] [place] [place] [address] Phone Organization [facility] , [facility] Address [address] [place] [address] Phone Care Team Providers Care Cloth Spreader Screen Printing Name Role Phone Roshni GUZMAN, Candelario Hodgson Unavailable Unavailable DIONISIO TURNER, GUCCI Horton Unavailable [phone] Reason for Visit and Chief Complaint BRACE FITTING Problems Includes: Problems addressed during this encounter and other active Problems All Visits Onset Date Resolved Date Provider Condition S tatus Right Ankle Joint Pain 06/24/2023 Candelario webster DPM Active Last Documented On 3 9:34AM ; [facility], [facility] Plan of Treatment Future Appointments Date Time Location Provi ramon Follow Up 03/04/2024 1:00PM [facility] Candelario Barakat DPM Last Documented On 4 9:48AM ; [facility], [facility] Assessments Includes: Assessments from this encounter No Assessments Recorded Medical Equipment - Implanted Devices Includes: Current Devices No Medical Equipment Recorded Medications Includes: Medications discussed during this encounter and other current Medications Current Medications (continue as prescribed) Fluconazole 100 MG Oral Tablet 06/13/2023 Provider: Angie Jaramillo NP Diagnosis: Last Documented On 3 9:36AM By Yuki Cast ; [facility], [facility] Tamsulosin HCl 0.4 MG Oral Capsule 06/08/2023 Provid er: DEEPTI JEREZ MD Diagnosis: Last Documented On 3 9:36AM By Yuki Cast ; [facility], [facility] oxyBUTYnin Chloride ER 15 MG Oral Tablet Extended Release 24 Hour 05/24/2023 Provider: DEEPTI JEREZ MD Diagnosis: Last Documented On 3 9:36AM By Yuki Cast ; [facility] Simvastatin 40 MG Oral Tablet 05/10/2023 Provider: GUCCI NICHOLE MD Diagnosis: Last Documented On 3 9:36AM By Yuki Cast ; [facility] Omeprazole 40 MG Oral Capsule Delayed Release 05/01/20 Provider: MIAN SOLORZANO Diagnosis: Last Documented On 3 9:36AM By Yuki Cast ; [facility] Medications Administered Includes: Administered Medications from this encounter No Administered Medications Recorded Results Includes: Results discussed during this encounter No Results Recorded For Specified Dates History of Present Illness Includes: History of Present Illness from this encounter No History of Present Illness Recorded Social History No Social History Recorded - Smoking Status Unknown Procedures and Surgical History Includes: Procedures from this encounter Procedures Code Diagnosis Performing Provider Service Location Service Date CRUTCHES (Purchase of New Equipment, KX) E0114 Strain of right Achilles tendon, initial encounter Candelario Barakat DPM [facility] 06/24/2023 Last Documented On 3 4:09PM ; [facility] High tide Walker- Pneumatic (RIGHT, KX, ABN signed) L4361 Strain of right Achilles tendon, initial encounter Candelario Barakat DPM [facility] 06/24/2023 Last Documented On 3 4:09PM ; [facility] Medical History Includes: Medical History addressed during this encounter No Medical History Recorded Family History Includes: Family History addressed during this encounter No Family History Recorded Review of Systems Includes: Review of Systems from this encounter No Review of Systems Recorded Mental Status Includes: Mental Status from this encounter No Mental Status Recorded Functional Status Includes: Functional Status from this encounter No Functional Status Recorded Physical Exam Includes: Physical Exam from this encounter No Physical Exam Recorded Allergies Includes: Active Allergies No Known Allergies Encounters Encounter Provider Location Date Check-In Time Check-Out Time Diagnosis BRACE FITTING Candelario Barakat DPM [facility] 06/24/2023 11:10AM 11:59PM Insurance Includes: Active Insurance Policies Plan Name Member ID Group # Subscriber Relationship Effect hubert Dates 1 - Medicare Part [facility] [id number] Eric Richmond Self 2 - FOR LIFE [id number] Eric Richmond Niya f Clinical Notes Includes: Clinical Notes from this encounter No Clinical Notes Recorded
[2024-01-21] MEDS: LACTATED RINGERS 1000ML 1,000 ML 100 ML IV (08:33)
--- NOTE | 2024-01-21 08:58 | P.PCN_ITS ---
Procedure: Date: 01/21/24 Patient Date of :: 1955 Procedure Performed:: Colonoscopy with polypectomy Indications:: History of colon polyps Performing Provider:: Doroteo Sanders MD Referring Provider:: . Sedation:: Monitored anesthesia care Procedure:: After informed consent was obtained the patient was taken to the endoscopy suite. Sedation ensued after the patient was transferred to the left lateral d ecubitus position. Pulse, blood pressure, and oxygen saturation were monitored throughout the procedure. Digital rectal exam revealed no significant abnormality. The colonoscope was placed in position. The entire colon was evaluated. The colonoscope was carefully removed and the patient was transferred to recovery in stable condition. Please see findings and specimens below for detail. Findings:: Bowel preparation fair to moderate Fairly significant spasticity/lack of relaxation Sigmoid diverticulosis Right colon polyp Specimens:: Right colon polyp (cold snare) Recommendations:: Timing of repeat colonoscopy is pending pathology but will likely be around 3-5 years. Complications:: No immediate Estimated blood obtained (mL): 1 Colonoscopy Component Colonoscopy Component Was a colonoscopy performed during today's procedure?: Yes Recommended follow up colonoscopy of at least 10 years?: No If no, follow up colonoscopy recommended in ___ years?: (See above) Reason for not recommending >/= 10 yr follow-up interval?: (See above)
--- NOTE | 2024-01-21 09:06 | P.PNANES_ITS ---
[facility] Disclaimer: The information contained in this section may have been updated after the patient was seen, as this information can be updated by other users. Medical History Sacral nerve stimulator present Sacral nerve stimulator present GERD (gastroesophageal reflux disease) OAB (overactive bladder) Hx of central retinal artery occlusion Hx of central retinal artery occlusion Surgical History Hx of colonoscopy Hx of cholecystectomy Hx of tonsillectomy Family History (Updated 01/21/24 @ 08:21 by Doyle Sapp) Other No significant family history Social History Smoking Status: Former smoker alcohol intake: never substance use type: denies use current occupational status: retired Travel in the last 8 weeks: None caffeine: Yes [facility] Anesthesia Checklist Patient Identification Patient Identification: Arm Band, Family and Verbal (Name & ) Structural Data Admitted From: Home Planned Operative Procedure/s: Colonoscopy Consent for Planned Operative Procedure(s) Verified: Yes Verified Documents: Surgical Consent and History and Physical NPO Status Verified Time NPO: 05:00 Additional verifications Patient : No Anesthesia Reactions: No Cardiovascular Assessment Heart Sounds: S1 & S2 Pulse Rhythm: Irregular Peripheral Edema: No Airway Assessment Mallampati Score:: Class II C-Spine Mobility Assessed: Yes (FROM) TMJ Mobility Assessed: Yes Dentition: Good Dentition (Nothing loose per pt.) Neurological Assessment Level of Consciousness: Awake, Alert, Appropriate and Follows Commands Hx Seizures: No Numbness or tingling in extremities: No Anesthesia Plan Anesthesia Risk discussed: Yes Anesthesia Plan: Verified ASA Class: III Anesthesia Type: MAC
--- NOTE | 2024-01-21 09:49 | P.PNANES_ITS ---
[facility] Anesthesia Record Part I Anesthesia Record I Intake, IV Amount: 300 Hydration: Adequate Estimated blood loss (mL): 1 Urine output (mL): 0 Blood Products used (#): none Blood Pressure: 139/79 SaO2: 95 Pulse Rate: 85 Airway Patency: Patent Respiratory Rate: 24 Temperature: 97.9 F Patient is:: Awake (Talking) and Stable Stable to PACU at:: 09:51
== END 2024-01-21 10:20 | disposition home or self-care (01) ==
PROVIDERS: PCP Family Medicine; Visit Provider Surgery
PROC: 0DJD8ZZ Inspection of Lower Intestinal Tract, Via Natural or Artificial Opening Endoscopic (ICD-10-PCS; CPT 45385; principal; 2024-01-21 09:30)
DX: Z12.11 Encounter for screening for malignant neoplasm of colon (principal); Z86.010 Personal history of colon polyps; K57.30 Diverticulosis of large intestine without perforation or abscess without bleeding; K51.40 Inflammatory polyps of colon without complications
CPT/HCPCS: 45385

== ENCOUNTER 2025-06-11 13:54 | Outpatient (CLI) | payer MEDICARE, OTHER, SELFPAY ==
--- NOTE | 2025-06-11 14:00 | XR_ITS ---
FINAL REPORT CLINICAL HISTORY: fell yesterday jamming up spine - pain around waist area FINDINGS: LUMBAR SPINE 5 views were obtained. There is no acute fracture. Vertebrae are normal height. There is no malalignment. There is moderate degenerative disc disease. There is no soft tissue abnormality. IMPRESSION: No acute bony abnormality. Degenerative disc disease. Reviewed, Interpreted and Dictated by Joel Del Cid MD Transcribed by Emily Constantino Authenticated and [facility]
--- NOTE | 2025-06-11 14:00 | XR_ITS ---
FINAL REPORT CLINICAL HISTORY: fell yesterday jamming up spine - pain around waist area FINDINGS: SACRUM/COCCYX Three views were obtained. There is no acute fracture or dislocation. A stimulator overlies the right pelvis. Joint spaces are maintained. No acute soft tissue abnormality is seen. IMPRESSION: No acute bony abnormality. Reviewed, Interpreted and Dictated by Joel Del Cid MD Transcribed by Emily Constantino Authenticated and [facility]
== END 2025-06-11 23:59 | disposition home or self-care (01) ==
LOC: RAD 13:55
PROVIDERS: PCP Nurse Practitioner; Visit Provider Nurse Practitioner
DX: M51.369 Other intervertebral disc degeneration, lumbar region without mention of lumbar back pain or lower extremity pain (principal); R29.6 Repeated falls; W19.XXXA Unspecified fall, initial encounter
CPT/HCPCS: 72110; 72220